=== PATIENT | male | born 1990 | race Caucasian/White ===

== ENCOUNTER → 2016-03-24 | Outpatient (CLI) | payer BC ==
--- NOTE | 2016-03-24 09:56 | US ---
Right Upper Quadrant Sonogram Indication: Right upper quadrant pain for 2 to 3 months. Findings: The normal size liver, measuring 17.5 cm in the midaxillary line, has normal echogenicity a nd echotexture. No sonographic mass or biliary dilation. The gallbladder is normal. No intraluminal stones, sludge, wall thickening, or sonographic Giles sig n. Common bile duct is normal caliber (3 mm). Portal vein is patent. The abdominal aorta is normal caliber. The right kidney is unremarkable. No hydronephrosis. The right kidney measures 11.2 cm in length x 4. 8 x 4.2 cm axially. Cortical thickness: 1.4 cm. No free fluid. The imaged portions of the pancreatic neck, head, and central body are normal. The pa ncreatic tail is obscured by bowel gas. Impression: Normal. No cholelithiasis, biliary dilation, hydronephrosis or free fluid.
== END ==
LOC: BRMIMAGING 08:20
PROVIDERS: ATTEND Registered Nurse
DX: R10.11 Right upper quadrant pain (principal)
CPT/HCPCS: 76705-PO